=== PATIENT | male | born 1975 | race Caucasian/White ===

== ENCOUNTER 2017-02-16 15:14 | Emergency (ER) | payer OTHER ==
[2017-02-16 15:19] VITALS: RESP 18
[2017-02-16] MEDS ORDERED: NS 1,000 ML IV ONE ×2 (15:27→16:21)
--- NOTE | 2017-02-16 15:27 | EDPHY ---
H & P Stated Complaint: headache, R arm numbness Time Seen by Provider: 02/16/17 15:22 HPI/ROS: CHIEF COMPLAINT: Frontal headache, confusion, difficulty remembering names HISTORY OF PRESENT ILLNESS: The patient presents to the emergency department with a chief complaint of mild confusion, difficulty remembering names and a frontal headache which began approximately 1 hour prior to arrival. The patient states his symptoms began after eating lunch at a fast food restaurant. The patient return to work and began to feel globally weak slightly confused and disoriented. The patient initially had some paresthesias in his right arm but down reports bilateral upper extremity paresthesias. The patient complains of a bilateral frontal headache currently rated as a 5/10. The patient has a remote history of headaches 10 years ago and had uneventful neuro imaging at that point time per his report. The patient denies taking any medications. He denies any recent fall or trauma. He denies recent fever. The patient denies history of any other [employer] disease. REVIEW OF SYSTEMS: A comprehensive 10 point review of systems is otherwise negative aside from elements mentioned in the history of present illness. Source: Patient Exam Limitations: No limitations - Personal History Current Tetanus Diphtheria and Acellular Pertussis (TDAP): Yes - Medical/Surgical History Hx Asthma: No Hx Chronic Respiratory Disease: No Hx Diabetes: No Hx Cardiac Disease: No Hx Renal Disease: No Hx Cirrhosis: No Hx Alcoholism: No Hx HIV/AIDS: No Hx Splenectomy or Spleen Trauma: No Other PMH: ortho injuries - Social History Smoking Status: Never smoked - Physical Exam Exam: General Appearance: Alert, no distress Eyes: Pupils equal and round no pallor or injection ENT, Mouth: Mucous membranes moist Respiratory: There are no retractions, lungs are clear to auscultation Cardiovascular: Regular rate and rhythm Gastrointestinal: Abdomen is soft and nontender, no masses, bowel sounds normal Neurological: Alert and oriented x4, 5/5 strength all 4 extremities, cranial nerves 2-12 intact, normal [id number], normal [id number], sensation intact to light touch throughout all 4 extremities, NIH stroke scale equals 0 Skin: Warm and dry, no rashes Musculoskeletal: Neck is supple nontender Extremities: symmetrical, full range of motion Constitutional: Initial Vital Signs Temperature (C) 36.6 C 02/16/17 15:17 Heart Rate 74 02/16/17 15:17 Respiratory Rate 18 02/16/17 15:17 Blood Pressure 162/99 H 02/16/17 15:17 O2 Sat (%) 96 02/16/17 15:17 O2 Delivery Mode Room Air Allergies/Adverse Reactions: No Known Allergies Allergy (Unverified 02/16/17 15:19) Home Medications: Medication Instructions Recorded NK [No Known Home Meds] 02/16/17 Medical Decision Making - Diagnostics Imaging Results: Imaging Impressions Head CT 02/16/17 15:27 Impression: Normal. Results called and discussed with Dr. Jovanni Penny at 02/16/2017 15:54. ED Course/Re-evaluation: The patient presents to the ED after the development of a episode of confusion, mild amnesia, a frontal headache and transient bilateral upper extremity paresthesias. The patient does report being outside in fairly significant heat prior to the development of the symptoms. The patient arrived is noted to be neurologically intact. The patient did have an IV established. He received a L of normal saline. Given his frontal headache he was taken for noncontrast head CT scan which demonstrates no evidence of an obvious intracranial abnormality. Shortly after returning from CT scan, the patient developed a small hive on his face in a additional small hive on his back. This was prior to the administration of 15 mg of IV Toradol. The patient was given 50 mg of Benadryl and 10 mg of Decadron. The patient presents to the ED after an episode of mild confusion, slight amnesia, bilateral upper extremity paresthesias and frontal headache. The patient had a similar episode approximately 10 years ago which did have features consistent with migraine/transient global amnesia. The patient's presentation today is similar. The patient a typically he is having symptoms of a mild urticarial reaction with symptoms of mild headache and slight amnesia. The patient is having no evidence of obvious meningitis based upon his exam today. The patient is re-evaluated at 6:30 p.m.. There is no evidence of any progressive rash. His headache has resolved. His neurologic examination remains normal. At this point time I do feel the patient can safely be discharged home. He has been given instructions to return to the ED for any recurrent headache, unilateral neurologic symptoms, difficulty with speech vision or walking or other concerns. Differential Diagnosis: Differential diagnosis considered includes migraine syndrome, dehydration, urticarial reaction, a transient global amnesia, subarachnoid hemorrhage - Data Points Laboratory Results: Laboratory Results 02/16/17 15:25 02/16/17 15:25 02/16/17 02/16/17 15:25 15:25 WBC 8.73 10^3/uL 10^3/uL (3.80-9.50) RBC 5.39 10^6/uL 10^6/uL (4.40-6.38) Hgb 16.2 g/dL g/dL (13.7-17.5) Hct 46.9 % % (40.0-51.0) MCV 87.0 fL fL (81.5-99.8) MCH 30.1 pg pg (27.9-34.1) MCHC 34.5 g/dL g/dL (32.4-36.7) RDW 13.0 % % (11.5-15.2) Plt Count 293 10^3/uL 10^3/uL (150-400) MPV 10.5 fL fL (8.7-11.7) Neut % (Auto) 52.0 % % (39.3-74.2) Lymph % (Auto) 36.5 % % (15.0-45.0) Harrison % (Auto) 9.5 % % (4.5-13.0) Eos % (Auto) 0.9 % % (0.6-7.6) Baso % (Auto) 0.8 % % (0.3-1.7) Nucleat RBC Rel Count 0.0 % % (0.0-0.2) Absolute Neuts (auto) 4.53 10^3/uL 10^3/uL (1.70-6.50) Absolute Lymphs (auto) 3.19 10^3/uL H 10^3/uL (1.00-3.00) Absolute Monos (auto) 0.83 10^3/uL H 10^3/uL (0.30-0.80) Absolute Eos (auto) 0.08 10^3/uL 10^3/uL (0.03-0.40) Absolute Basos (auto) 0.07 10^3/uL 10^3/uL (0.02-0.10) Absolute Nucleated RBC 0.00 10^3/uL 10^3/uL (0-0.01) Immature Gran % 0.3 % % (0.0-1.1) Immature Gran # 0.03 10^3/uL 10^3/uL (0.00-0.10) Sodium 143 mEq/L mEq/L (134-144) Potassium 4.0 mEq/L mEq/L (3.5-5.2) Chloride 108 mEq/L mEq/L (97-110) Carbon Dioxide 22 mEq/l mEq/l (22-31) Anion Gap 13 mEq/L mEq/L (8-16) BUN 12 mg/dL mg/dL (7-23) Creatinine 1.2 mg/dL mg/dL (0.7-1.3) Estimated GFR > 60 Glucose 99 mg/dL mg/dL (70-100) Calcium 9.9 mg/dL mg/dL (8.5-10.4) Medications Given: Discontinued Medications Dexamethasone (Decadron Injection) 10 mg IVP EDNOW ONE Stop: 02/16/17 17:19 Last Admin: 02/16/17 17:36 Dose: 10 mg Diphenhydramine HCl (Benadryl Injection) 50 mg IVP EDNOW ONE Stop: 02/16/17 17:19 Last Admin: 02/16/17 17:36 Dose: 50 mg Sodium Chloride (Ns) 1,000 mls @ 0 mls/hr IV EDNOW ONE; Wide Open PRN Reason: Protocol Stop: 02/16/17 15:28 Last Admin: 02/16/17 15:30 Dose: 1,000 mls Sodium Chloride (Ns) 1,000 mls @ 0 mls/hr IV EDNOW ONE; Wide Open PRN Reason: Protocol Stop: 02/16/17 16:22 Last Admin: 02/16/17 16:26 Dose: 1,000 mls Ketorolac Tromethamine (Toradol) 15 mg IVP EDNOW ONE Stop: 02/16/17 16:22 Last Admin: 02/16/17 16:26 Dose: 15 mg Departure - Departure Disposition: Home, Routine, Self-Care Clinical Impression: Migraine, Hives Condition: Good Instructions: Acute Headache (ED) Additional Instructions: 1. Please encourage fluids. 2. Please return to the ED tomorrow for recheck for any headache, persistent symptoms or other concerns. 3. Please return to the ED immediately for worsening headache, numbness, weakness, difficulty with speech, vision or walking. 4. You have been given the contact number of our on-call neurologist for any intermittent mild persistent symptoms. Please contact their office in the next 1 -2 days to schedule a follow-up visit for any mild symptoms that are ongoing. Referrals: Dago Levy MD [Medical Doctor] - As per Instructions
[2017-02-16 15:42] LABS: % IMMATURE GRANULYOCYTES 0.3 % (0.0-1.1); ABSOLUTE IMMATURE GRANULOCYTES 0.03 10^3/uL (0.00-0.10); ADD DIFF? NO; ADD MORPH? NO; ADD SCAN? NO; ATYPICAL LYMPHOCYTE FLAG 10 (0-99); FRAGMENT RBC FLAG 0 (0-99); HEMATOCRIT 46.9 % (40.0-51.0); HEMOGLOBIN 16.2 g/dL (13.7-17.5); LEFT SHIFT FLG 0 (0-99); LIPEMIA HEMOLYSIS FLAG 90 (0-99); MEAN CELL HEMOGLOBIN 30.1 pg (27.9-34.1); MEAN CELL HEMOGLOBIN CONCENTR. 34.5 g/dL (32.4-36.7); MEAN PLATELET VOLUME 10.5 fL (8.7-11.7); PLATELET CLUMPS FLAG 0 (0-99); PLATELET COUNT 293 10^3/uL (150-400); RED BLOOD CELL COUNT 5.39 10^6/uL (4.40-6.38)
[2017-02-16 15:58] LABS: ANION GAP 13 mEq/L (8-16); CALCIUM 9.9 mg/dL (8.5-10.4); CARBON DIOXIDE 22 mEq/l (22-31); CHLORIDE 108 mEq/L (97-110); CREATININE 1.2 mg/dL (0.7-1.3); GLOMERULAR FILTRATION RATE > 60; GLUCOSE 99 mg/dL (70-100); SODIUM 143 mEq/L (134-144)
[2017-02-16] MEDS ORDERED: KETOROLAC 15 MG/1 ML SDV IVP ONE (16:21)
[2017-02-16] MEDS ORDERED: DEXAMETHASONE 10 MG/ML VIAL IVP ONE (17:18)
[2017-02-16 18:47] VITALS: BP 122/84; PULSE 74; TEMP 98.2; O2SAT 95
== END 2017-02-16 18:48 | disposition home or self-care (01) ==
DX: G43.909 Migraine, unspecified, not intractable, without status migrainosus (principal); L50.9 Urticaria, unspecified; E86.9 Volume depletion, unspecified
CPT/HCPCS: 96374; J1100; J1200; J1885